=== PATIENT | female | born 1965 | race African-American/Black ===

== ENCOUNTER 2018-08-31 06:16 | Day surgery (SDC) | payer MEDICAID ==
[~2018-08-31] VITALS: Ht 165.1 cm; Wt 83.5 kg
[2018-08-31] MEDS ORDERED: LIDOCAINE 4% 50 ML SOLUTION TP ONE (06:17)
[2018-08-31] MEDS ORDERED: EPINEPHrine 1:1,000 [1 MG/ML] AMP IM ONE (06:17)
[2018-08-31] MEDS ORDERED: ALBUTEROL SULFATE 2.5 MG/0.5 ML NEB SOLUTION NEB ONE (06:17)
[2018-08-31] MEDS ORDERED: LIDOCAINE 2% 30 ML JELLY TP ONE (06:17)
[2018-08-31] MEDS ORDERED: GLYCOPYRROLATE 0.2 MG/ML VIAL IM ONE (06:17)
[2018-08-31] MEDS ORDERED: SODIUM CHLORIDE 0.9% 1,000 ML IV ONE ×2 (06:27→06:30)
[2018-08-31] MEDS ORDERED: BECL10.62 IH (08:06)
[2018-08-31] MEDS ORDERED: ALBU8.5H8 IH (08:06)
[2018-08-31] MEDS ORDERED: DULO20CA30 PO (08:06)
[2018-08-31] MEDS ORDERED: MONT10TA21 PO (08:06)
[2018-08-31] MEDS ORDERED: MIDAZOLAM HCL 2 MG/2 ML VIAL ONE (08:09)
[2018-08-31] MEDS ORDERED: FentaNYL CITRATE-PF 100 MCG/2 ML VIAL ONE (08:09)
[2018-08-31] MEDS ORDERED: MethylPREDNISolone SOD SUCC 125 MG/2 ML VIAL IVP ONE (08:45)
[2018-08-31] MEDS ORDERED: MethylPREDNISolone SOD SUCC 125 MG/2 ML VIAL ONE (08:53)
[2018-08-31] MEDS ORDERED: OXYGEN THERAPY IH SCH (20:00)
== END 2018-08-31 09:40 | disposition home or self-care (01) ==
LOC: SURGERY 06:16
PROVIDERS: ATTEND Internal Medicine Critical Care Medicine
DX: J38.4 Edema of larynx (principal); B37.0 Candidal stomatitis; J98.09 Other diseases of bronchus, not elsewhere classified; J98.8 Other specified respiratory disorders; J45.998 Other asthma; Z90.49 Acquired absence of other specified parts of digestive tract; Z98.84 Bariatric surgery status; Z87.09 Personal history of other diseases of the respiratory system; Z86.69 Personal history of other diseases of the nervous system and sense organs; Z79.899 Other long term (current) drug therapy; Z98.890 Other specified postprocedural states
CPT/HCPCS: 31623; 31624; 71045; 87015; 87070; 87205; 87206; 87220; 88108; 88312; J0171; J2250; J2930; J3010; J3490; J7030

== ENCOUNTER 2021-08-06 05:20 | Day surgery (SDC) | payer OTHER ==
[~2021-08-06] VITALS: Ht 157.5 cm; Wt 86.4 kg
[~2021-08-06 05:20] MED LIST: ALBU8.5H8 IH; BECL10.62 IH; DULO20CA27 PO; MONT-35 PO
[2021-08-06] MEDS ORDERED: SODIUM CHLORIDE 0.9% 1,000 ML ONE (06:29)
[2021-08-06 06:59] LABS: COVID AG,FIA SOURCE NASOPHARYNGEAL
[2021-08-06] MEDS ORDERED: SODIUM CHLORIDE 0.9% 1,000 ML IV ONE (07:00)
[2021-08-06] MEDS ORDERED: MIDAZOLAM HCL 5 MG/ML VIAL ONE (09:00)
[2021-08-06] MEDS ORDERED: FentaNYL CITRATE PF 100 MCG/2 ML VIAL ONE (09:00)
[2021-08-06] MEDS ORDERED: MethylPREDNISolone SOD SUCC 125 MG/2 ML VIAL ONE (09:29)
[2021-08-06] MEDS ORDERED: MethylPREDNISolone SOD SUCC 125 MG/2 ML VIAL IVP ONE (09:30)
[2021-08-06] MEDS ORDERED: PROMETH/PHENYLEPHRINE/CODEINE 5 ML ORAL.SYG PO ONE (09:40)
[2021-08-06] MEDS ORDERED: OXYGEN THERAPY IH SCH (20:00)
== END 2021-08-06 11:50 | disposition home or self-care (01) ==
LOC: SURGERY 05:20
PROVIDERS: ATTEND Internal Medicine Critical Care Medicine
DX: J38.4 Edema of larynx (principal); B37.0 Candidal stomatitis; J45.909 Unspecified asthma, uncomplicated; Z79.899 Other long term (current) drug therapy; Z98.890 Other specified postprocedural states
CPT/HCPCS: 31623; 31624; 71045; 87015; 87070; 87101; 87205; 87206; 87220; 87426; 88108; 88184; 88185; 88312; C9803; J2250; J2370; J2930; J3010; J7030